=== PATIENT | male | born 1965 | race Caucasian/White ===

== ENCOUNTER 2024-11-21 18:22 | Emergency (ER) | payer OTHER, SELFPAY ==
[2024-11-21 18:43] VITALS: BP 175/78; PULSE 77; TEMP 36.7; O2SAT 100
--- NOTE | 2024-11-21 19:00 | XRR_ITS ---
PROCEDURE INFORMATION: Exam: XR Left Hip Exam date and time: 11/21/2024 7:03 PM Age: 58 years old Clinical indication: Injury or trauma; Fall; Blunt trauma (contusions or hematomas); Left; Hip; Additional info: Fall/left hip pain TECHNIQUE: Imaging protocol: Radiologic exam of the left hip. Views: 2 or 3 views hip with pelvis when performed. COMPARISON: No relevant prior studies available. FINDINGS: Bones/joints: Unremarkable. No acute fracture. Soft tissues: Unremarkable. XR/XR hip LT 2-3V wo/w pel* [id number] IMPRESSION: No acute findings.
--- NOTE | 2024-11-21 19:00 | XRR_ITS ---
PROCEDURE INFORMATION: Exam: XR Left Wrist Exam date and time: 11/21/2024 7:03 PM Age: 58 years old Clinical indication: Injury or trauma; Fall; Blunt trauma (contusions or hematomas); Wrist; Left; Additional info: Fall/left wrist pain TECHNIQUE: Imaging protocol: Radiologic exam of the left wrist. Views: 3 or more views. COMPARISON: No relevant prior studies available. FINDINGS: Bones/joints: Comminuted fracture of the distal radius, intra-articular, minimal angulation and displacement. Soft tissues: Normal. XR/XR wrist LT min 3V* [id number] IMPRESSION: Comminuted fracture of the distal radius, intra-articular, minimal angulation and displacement.
[2024-11-21] MEDS: oxyCODONE 5 mg IR Tab/Cap PO ×2 (19:24→21:13)
[2024-11-21 19:28] VITALS: BP 148/89; PULSE 72; RESP 16; O2SAT 100
[2024-11-21 20:00] VITALS: BP 132/59; PULSE 73; RESP 16; O2SAT 97
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
[2024-11-21 21:00] VITALS: BP 120/96; PULSE 80; O2SAT 98
[2024-11-21 21:16] VITALS: BP 132/59; PULSE 80; O2SAT 97
--- NOTE | 2024-11-23 07:52 | DCPLANNER ---
messaged ortho for er f/u
== END 2024-11-21 21:12 | disposition home or self-care (01) ==
PROVIDERS: Emergency Provider Emergency Medicine
DX: S52.572A Other intraarticular fracture of lower end of left radius, initial encounter for closed fracture (principal); S70.02XA Contusion of left hip, initial encounter; V18.2XXA Unspecified pedal cyclist injured in noncollision transport accident in nontraffic accident, initial encounter
CPT/HCPCS: 73110; 73502; 99284; A4565; J9999

== ENCOUNTER 2024-11-23 14:57 | Outpatient (CLI) | payer OTHER, SELFPAY ==
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
== END 2024-11-23 14:58 | disposition home or self-care (01) ==
PROVIDERS: Visit Provider Student in an Organized Health Care Education/Training Program
DX: S52.572A Other intraarticular fracture of lower end of left radius, initial encounter for closed fracture (principal); V18.0XXA Pedal cycle driver injured in noncollision transport accident in nontraffic accident, initial encounter; Y93.55 Activity, bike riding
CPT/HCPCS: 73200

== ENCOUNTER 2024-11-24 09:24 | Day surgery (SDC) | payer OTHER, SELFPAY ==
[2024-11-24] VITALS (16 sets, daily range): BP systolic 91–182; BP diastolic 61–87; PULSE 67–80; RESP 12–18; TEMP 36.4–36.7; O2SAT 97–100; BMI 25.7
[2024-11-24] MEDS: acetaminophen 1,000 MG/100 ML PIGGYBACK 400 MG IV (10:09)
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
--- NOTE | 2024-11-24 10:37 | ANES.PROC ---
Anesthesia Procedures Procedure/Date: 11/24/24 Nerve Block ^: Nerve Block 1: Main Anesthesia: other (100 mcg of fentanyl and 2 mg Versed) Time Out Performed: Yes Consent: requested by attending/covering physician and from patient Laterality: Left Nerve block location: supraclavicular Anesthesia monitors applied: pulse oximetry, EKG, BP cuff and oxygen Nerve block position: supine Anesthetic Used: ropivicaine 0.5% Amount of anesthesia used (mL): 30 Ultrasound used to: recognize landmarks Nerve Stimulator Used?: Yes Interscalene/Femoral BLK: other needle (pjunk 4inch) Injection: neg aspiration of heme Patient Tolerated Procedure: well Complications: none Additional Comments: decadron 4mg added to block
--- NOTE | 2024-11-24 10:51 | W.PM.OPSUD ---
Surgery/Procedure H&P Update DATE OF PROCEDURE: November 24, 2024 DATE H&P PERFORMED: 11/22/24 H&P UPDATE INFORMATION: I have reviewed H&P completed within last 30 days, I have examined patient prior to procedure and No changes to prior documentation PREOP DIAGNOSIS: Left distal radius fracture PRIMARY INDICATION FOR PROCEDURE: Left distal radius fracture comminuted intra-articular displaced PLANNED PROCEDURE: Operation Date: 11/24/24 12:15 Proposed Procedures p ORIF Distal Radius(Left) - Jose J Harding DO
[2024-11-24] MEDS: ceFAZolin 2,000 MG in sodium chloride 0.9% (plus) 50 ML 100 MG IV (11:37)
--- NOTE | 2024-11-24 12:00 | XR_ITS ---
WS: [id number] Left wrist, C-arm fluoroscopy views, 11/24/2024 Clinical Data: LT WRIST ORIF; OR PICS Comparison: Left wrist, 11/21/2024 Findings: Dr. Harding reduce the distal left radial fracture with internal fixation by a plate and screws. XR/XR wrist LT min 3V* [id number] Impression: Internal fixation of distal left radial fracture.
--- NOTE | 2024-11-24 15:41 | W.PM.BPON ---
Date of Procedure: 11/24/2024 Surgeon: Jose J Harding DO Rn Orthopaedics(s): None Procedure(s) performed: Left distal radius open reduction internal fixation (greater than 4 part intra-articular) Modifier 22?secondary to patient's significant comminution intra-articular involvement and significant comminution and displacement this required twice as long of time than standard distal radius fractures secondary for fracture fixation utilizing also crushed cancellous bone chips to tamp and restore joint surface Findings of the procedure(s): Patient underwent procedure as planned without issues or complications. Of note patient had significant fracture comminution and joint displacement. Patient had significant fracture comminution which a large dorsal fracture fragment is the main piece as well as displacement of the ulnar cortex of the distal radius as well as well as radial styloid with significant comminution. Joint was irrigated we utilized grafting to tamp back up and restore the joint surface through a dorsal approach and dorsal plating. Patient did have evidence of chondromalacia on the scaphoid as well as slightly on the lunate as well due to the impaction injury, SL ligament appeared intact. Patient underwent satisfactory fracture reduction and dorsal plating and fixation retinaculum was repaired over the plate and subsequently EPL left transposed an volar splint applied patient tolerated procedure well without issues or complications taken to recovery in stable condition. Estimated blood loss: 10 mL Specimen(s) removed: None Post-operative diagnosis: Left distal radius fracture displacement and intra-articular
[2024-11-24] MEDS: ceFAZolin 2,000 mg SDV 2000 MG IVP (15:45)
--- NOTE | 2024-11-24 15:50 | SUR.PHASEI ---
15:25 RECEIVED PT FROM OR STAFF. AIRWAY PATENT WITH GOOD VENTILATION. ALERT AND ORIENTED. NSR ON MONITOR. GOOD CAP REFILL TO FINGERS OF LEFT HAND.
--- NOTE | 2024-11-24 15:57 | P.OP_ITS ---
Operative Report Date of procedure: November 24, 2024 Surgeon: Jose J Harding DO Procedure: Preop Diagnosis ?Left?distal?radius fracture ? Procedure: Post-op diagnosis: Same, greater than 4 part intra-articular Procedure done: Left distal radius open reduction internal fixation (greater than 4 part intra- articular)?modifier 22- secondary to fracture pattern complexity demanding twice the time it takes as well as significant intra-articular involvement with restoring joint congruity and grafting Implants: ?Arthrex standard peripheral rim fit anatomic distal radius dorsal plate?4-hole left Combination of locking and nonlocking screws 2.4 mm?distal Combination of locking and nonlocking screws 3.5 mm proximal Surgeon: Jose J Harding DO Anesthesia: General and nerve Block (Regional) Estimated blood loss: 10 mL Tourniquet time: 120 minutes IV fluids: 1500 mL Complications: None Findings: See operative report narrative Condition: stable Disposition: same day Brief History: Patient is a 58-year-old male who presented to my office for a [id number] Left?distal?radius fracture.? 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 as result through shared decision making patient would elects to proceed with?ORIF?Left?distal?radius fracture.? Detail the risk benefits complication alternatives to treatment option.? Understanding risk for surgery patient elects to proceed with surgical intervention.? All questions been answered at this time. Procedure: Patient seen and evaluated in the preoperative holding area.? Consent reviewed and signed with patient.? Correct extremities were marked and consent was reviewed and signed.? Patient was seen and evaluated by anesthesia department.? Underwent regional anesthesia. Once cleared for surgery pt was taken back to the operative suite.? Patient was then transported into the operative suite and kept on the OR gurney, all bony prominences well-padded patient was appropriate secured to bed in supine position.? An armboard was applied to the Left upper extremity.? The Left upper extremity had a nonsterile tourniquet applied.? Patient subsequently was then prepped and draped in standard orthopedic fashion she underwent anesthesia per the anesthesia department.? A final timeout was performed.? Patient received appropriate preoperative antibiotics. Esmarch was used exsanguinate the Left upper extremity and tourniquet was insufflated to 250 mmHg. Standard dorsal approach for distal radius was performed this was centering over Sara's tubercle a direct longitudinal incision was made to accommodate for a standard anatomic dorsal distal radius plate. Sharp scalpel incision was made through skin and subcutaneous tissue switched to Littler dissection scissors dissected out any neurovascular structures including superficial cutaneous branches and these were protected throughout the case. I came then down directly over the third dorsal compartment and subsequently exposed the EPL tendon and transposed this over Sara's tubercle radially. This allowed me entryway in between the 2nd and 4th compartments these were then subperiosteally elevated keeping the compartments intact and the extensor tendons were protected throughout this case immediately I then encountered the distal radius fracture site. At this point in time patient had a significant comminution dorsally and fracture window dorsally I was able to place my [place] in this area to make a space to tamp up the joint surface. At this time and I made a capsulotomy for evaluation and evacuated hemarthrosis within the joint this was then thoroughly irrigated and then visualized step off. At this point time of brought in fluoroscopic imaging as well I utilized a dental pick to isolate the step-off fragment in the scaphoid fossa. Patient had a significantly large dorsal fracture fragment that was depressed and 1 isolated piece this was free-floating this was removed and I was able to tamp up the volar and ulnar aspect and to free up the space to allow for better fracture close and clamping from a radial and ulnar positioning. At this point in time is able to have direct visualization of the scaphoid which did show some early scaphoid chondromalacia the joint was then debrided small free-floating cartilaginous piece that was removed that was too small for fixation. At this point in time there was comminution of roughly 6-7 fragments. This had significant comminution throughout the intra-articular surface. At this point in time with the dorsal fragment moved out of the way I was able to work and tamp up the joint space volarly once I satisfied with this I then once again replaced back to the large dorsal fragment that maintained a significant portion of the scaphoid facet. At this point in time I then utilized a [id number] clamp as well as manual traction with radial deviation and then compression through the DRUJ joint to compress the dorsal and volar ulnar corner to be reduced and close down the fracture site this close down and clamped down the window from radial to ulnar which wedged the large dorsal fracture fragment back into place. At this point in time once this was hold and reduction was held in place I did fluoroscopic imaging made micro adjustments with a dental pi ck to maintain Arthrex joint congruity once this was confirmed with fluoroscopic imaging I then placed a rafting K wire pin directly subchondral bone into the DRUJ joint this held my reduction. At this point in time I then backfilled the defect with crushed cancellous bone chips. This was used to keep propped up the depressed dorsal fracture fragment. At this point in time I then subsequently brought in fluoroscopic imaging and was satisfied with the joint reduction in multiple orthogonal planes. Once I was satisfied with this I then selected appropriate Arthrex dorsal peripheral rim pl ate this would rafter all of the fracture fragments and the subchondral bone. I then subsequently performed a standard plate bending technique to contour this more to the patient's anatomy once this is properly contoured and then subsequently drilled and placed a 3.5 cortical in the oblong hole with this I then had to make some small adjustments to make sure this was positioned appropriately and then I used the variable angle guide distally initially started with a fully threaded cortical screw distally to compress the plate the bone once I was satisfied with this plate to bone interface I then locked the entire peripheral rim screws distally these all were subsequently drilled measured and appropriate length screws were then subsequently placed these all rafter and were outside of the joint and taken and confirmed in multiple orthogonal imaging. Once I was satisfied this I subsequently drilled and placed additional locking and nonlocking screws proximally and the 3 5 position. This completed the construct. I then subsequently removed the rafting K wire and took final fluoroscopic imaging. I then took final fluoroscopic imaging and had satisfactory reduction of the distal radius. Given the complexity of this case which required greater than 2 times the standard amount of time for a standard distal radius this required a more meticulous approach to the distal radius as well as required significant attention to intra-articular fracture with significant chondral injury and fragmentation involvement requiring joint space reduction and congruity as well as utilizing bone graft chips to maintain joint integrity this case should be considered as modifier 22 due to its complexity with greater than 4 part intra- articular involvement and requiring twice the amount of time for standard distal radius fixation due to complex fracture pattern. At this point in time satisfied with reduction and fixation I then took the wrist through range of motion and stressed the DRUJ which was stable. At this point in time thorough irrigation performed tourniquet deflated hemostasis was satisfactory. At this point in time I closed this in layered fashion and then subsequently utilized O and 2-0 Vicryl suture to reapproximate the extensor retinaculum of the 2nd and 4th compartment creating full-thickness sleeves and protection directly over the plate. Third dorsal compartment was left transposed. Then closed the subcutaneous tissue with 3-0 Vicryl suture and then running nylon suture for skin. Patient tolerated procedure well without issues or complications she was then dressed with Xeroform 4 x 4's Kerlix ABD soft roll and a volar splint applied she was awake from anesthesia and taken recovery in stable condition. Patient was given a sling. Disposition: Patient taken to PACU in stable condition recovering well receive appropriate discharge instructions as well as pain medication postoperatively.? Maintain splint until follow-up.? Nonweightbearing to operative upper extremity We will follow-up with Ortho in the office in 2 weeks.? If any questions or concerns feel free to contact the office.
--- NOTE | 2024-11-24 16:25 | SUR.PHASEI ---
16:25 TOLERATING PO FLUIDS.
--- NOTE | 2024-11-24 17:12 | ANE.PACU2 ---
Inpatient post-anesthesia follow up: Airway intact: Yes Vital signs: Temperature 98.0 F Pulse Rate 74 Respiratory Rate 17 Blood Pressure 182/86 Pulse Oximetry 99 Oxygen Delivery Me thod Room Air Oxygen Flow Rate 2 Fraction of Inspir ed Oxygen Hydration adequate: Yes Nausea and vomiting: No Pain level: 1 Mental status: Baseline
== END 2024-11-24 17:12 | disposition home or self-care (01) ==
PROVIDERS: Visit Provider Student in an Organized Health Care Education/Training Program
PROC: (CPT 25609; principal; 2024-11-24 12:05)
DX: S52.572A Other intraarticular fracture of lower end of left radius, initial encounter for closed fracture (principal); V19.9XXA Pedal cyclist (driver) (passenger) injured in unspecified traffic accident, initial encounter
CPT/HCPCS: 25609; 73110; 76000; C1713; J0131; J0690; J1885; J2250; J2405; J2704; J3010; J7030

== ENCOUNTER → 2024-12-04 16:27 | Outpatient (BNVA) | payer OTHER, SELFPAY | PROVIDERS: Visit Provider Student in an Organized Health Care Education/Training Program | DX: M25.552 Pain in left hip (principal); S79.912A Unspecified injury of left hip, initial encounter; S73.192A Other sprain of left hip, initial encounter; V18.2XXA Unspecified pedal cyclist injured in noncollision transport accident in nontraffic accident, initial encounter; Y93.55 Activity, bike riding | CPT/HCPCS: 73523 ==

== ENCOUNTER 2024-12-06 12:09 | Outpatient (CLI) | payer OTHER, SELFPAY ==
--- NOTE | 2024-12-06 12:15 | MRR_ITS ---
PROCEDURE INFORMATION: Exam: MR Left Lower Extremity Joint Without Contrast; Hip Exam date and time: 12/06/2024 12:21 PM Age: 58 years old Clinical indication: Pain; Hip; Left; Additional info: Left hip pain TECHNIQUE: Imaging protocol: Magnetic resonance imaging of the left lower extremity joint without contrast. Exam focused on the hip. COMPARISON: CR XR hip BI m 5V wo/w pel* [id number] 12/04/2024 4:29 PM FINDINGS: OSSEOUS STRUCTURES: The pelvic ring is intact. There is patchy T2 hyperintensity within the visualized sacrum compatible with bone marrow edema, with subtle areas of corresponding T1 hypointensity suggesting bilateral sacral alar fractures. These findings are incompletely imaged on this exam. There is focal T2 hyperintensity within the anterior left acetabulum extending into the left superior pubic ramus to the pubic symphysis and involving the left inferior pubic ramus compatible with bone marrow edema. There appear to be subtle fracture lines in these regions as well. No displaced fracture is seen. The proximal femurs are intact bilaterally. There is very mild narrowing of the hip joints bilaterally with thinning of the articular cartilage, mild subchondral sclerosis, and tiny spurs. There appears to be mild T2 hyperintensity within the L4 vertebral body, incompletely imaged on this exam. GLUTEAL TENDONS: Intact. HAMSTRING TENDONS: Intact. ACETABULAR DIXIE: Grossly intact on this noncontrast study. SOFT TISSUES: There is fluid within the fascial plane between the gluteus lorna muscle and subcutaneous fat compatible with myofascial injury/strain. There is edema within the adjacent subcutaneous fat of the lateral left hip. There is edema within the abductor muscles of the left hip. OTHER: None. MR/MR hip LT wo con* [id number] IMPRESSION: 1. Bone marrow edema in the sacrum, anterior left acetabulum, left superior and inferior pubic rami with subtle nondisplaced fractures in these regions as described above. 2. Fluid within the fascial plane between the lateral left gluteus lorna musculature and subcutaneous fat compatible with myofascial injury/strain. 3. Edema in the left adductor muscles compatible with muscle strain. 4. Mild T2 hyperintensity within the L4 vertebral body, incompletely imaged on this exam. 5. 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
== END 2024-12-06 12:10 | disposition home or self-care (01) ==
LOC: RAD 12:10
PROVIDERS: Visit Provider Student in an Organized Health Care Education/Training Program
DX: S79.912A Unspecified injury of left hip, initial encounter (principal); M25.552 Pain in left hip; X58.XXXA Exposure to other specified factors, initial encounter
CPT/HCPCS: 73721

== ENCOUNTER → 2024-12-08 10:52 | Outpatient (BNVA) | payer OTHER, SELFPAY | PROVIDERS: Visit Provider Physician Assistant | DX: S32.512A Fracture of superior rim of left pubis, initial encounter for closed fracture (principal); S76.212A Strain of adductor muscle, fascia and tendon of left thigh, initial encounter; X58.XXXA Exposure to other specified factors, initial encounter; Z98.890 Other specified postprocedural states; S32.302A Unspecified fracture of left ilium, initial encounter for closed fracture | CPT/HCPCS: 72190; 73110; 73502 ==

== ENCOUNTER 2024-12-20 05:00 | Outpatient (CLI) | payer OTHER, SELFPAY | END 2024-12-20 05:01 | disposition home or self-care (01) | LOC: SOT 12-29 15:35 | PROVIDERS: Visit Provider Student in an Organized Health Care Education/Training Program | DX: S52.502A Unspecified fracture of the lower end of left radius, initial encounter for closed fracture (principal); X58.XXXA Exposure to other specified factors, initial encounter | CPT/HCPCS: 97760; L3906 ==

== ENCOUNTER → 2024-12-20 11:24 | Outpatient (BNVA) | payer OTHER, SELFPAY | PROVIDERS: Visit Provider Student in an Organized Health Care Education/Training Program | DX: Z98.890 Other specified postprocedural states (principal); S32.512A Fracture of superior rim of left pubis, initial encounter for closed fracture; S52.502A Unspecified fracture of the lower end of left radius, initial encounter for closed fracture; S79.912A Unspecified injury of left hip, initial encounter; S76.212A Strain of adductor muscle, fascia and tendon of left thigh, initial encounter; X58.XXXA Exposure to other specified factors, initial encounter | CPT/HCPCS: 72190; 73110 ==

== ENCOUNTER 2024-12-22 13:08 | Outpatient (RCR) | payer OTHER, SELFPAY | END 2025-01-19 23:59 | disposition home or self-care (01) | LOC: SOT 13:08 | PROVIDERS: Visit Provider Student in an Organized Health Care Education/Training Program | DX: S52.572A Other intraarticular fracture of lower end of left radius, initial encounter for closed fracture (principal); X58.XXXA Exposure to other specified factors, initial encounter | CPT/HCPCS: 97022; 97110; 97140; 97166; 97530 ==

== ENCOUNTER → 2025-01-03 15:45 | Outpatient (BNVA) | payer OTHER, SELFPAY | PROVIDERS: Visit Provider Student in an Organized Health Care Education/Training Program | DX: Z98.890 Other specified postprocedural states (principal); S32.592A Other specified fracture of left pubis, initial encounter for closed fracture; S32.512A Fracture of superior rim of left pubis, initial encounter for closed fracture; S76.212A Strain of adductor muscle, fascia and tendon of left thigh, initial encounter; X58.XXXA Exposure to other specified factors, initial encounter | CPT/HCPCS: 73110 ==

== ENCOUNTER → 2025-01-09 07:05 | Outpatient (BNVA) | payer OTHER, SELFPAY | PROVIDERS: Visit Provider Student in an Organized Health Care Education/Training Program | DX: Z98.890 Other specified postprocedural states (principal); S32.599A Other specified fracture of unspecified pubis, initial encounter for closed fracture; S32.519A Fracture of superior rim of unspecified pubis, initial encounter for closed fracture; S76.212A Strain of adductor muscle, fascia and tendon of left thigh, initial encounter; X58.XXXA Exposure to other specified factors, initial encounter | CPT/HCPCS: 73110 ==

== ENCOUNTER 2025-01-20 05:00 | Outpatient (RCR) | payer OTHER, SELFPAY | END 2025-02-18 23:59 | disposition home or self-care (01) | LOC: SOT 05:00 | PROVIDERS: Visit Provider Student in an Organized Health Care Education/Training Program | DX: S52.572A Other intraarticular fracture of lower end of left radius, initial encounter for closed fracture (principal); X58.XXXA Exposure to other specified factors, initial encounter | CPT/HCPCS: 97022; 97110; 97140 ==

== ENCOUNTER → 2025-01-29 15:28 | Outpatient (BNVA) | payer OTHER, SELFPAY | PROVIDERS: Visit Provider Student in an Organized Health Care Education/Training Program | DX: Z98.890 Other specified postprocedural states (principal); S52.572A Other intraarticular fracture of lower end of left radius, initial encounter for closed fracture; S76.212A Strain of adductor muscle, fascia and tendon of left thigh, initial encounter; S32.599A Other specified fracture of unspecified pubis, initial encounter for closed fracture; S32.519A Fracture of superior rim of unspecified pubis, initial encounter for closed fracture; X58.XXXA Exposure to other specified factors, initial encounter | CPT/HCPCS: 73110 ==

== ENCOUNTER 2025-02-19 05:00 | Outpatient (RCR) | payer OTHER, SELFPAY | END 2025-03-21 23:59 | disposition home or self-care (01) | LOC: SOT 05:00 | PROVIDERS: Visit Provider Student in an Organized Health Care Education/Training Program | DX: S52.572A Other intraarticular fracture of lower end of left radius, initial encounter for closed fracture (principal); X58.XXXA Exposure to other specified factors, initial encounter | CPT/HCPCS: 97022; 97110; 97140 ==